=== PATIENT | male | born 1950 | race Caucasian/White ===

== ENCOUNTER 2017-04-13 02:05 | Inpatient (IN) | payer MEDICARE ==
[~2017-04-13 02:05] MED LIST: ALBUTEROL2.5 MG/0.5 IH; LEVAQUIN500 MG PO; LOSARTAN POTAS100 MG PO; LOVAZA1 GM PO; NITROTAB0.4 MG SL; PHENERGAN W/CO120 ML PO; PREDNISONE10 MG PO; VENTOLIN HFA18 GM IH
[2017-04-13] MEDS ORDERED: NORVASC2.5 M1 PO (02:17)
[2017-04-13] MEDS ORDERED: TRICOR145 M2 PO (02:17)
[2017-04-13] MEDS ORDERED: LOVAZA1 GM/CAP PO (02:18)
[2017-04-13 03:44] LABS: BASO % 0.3 % (0-2); EOS % 0.6 % (0-7); HCT-HEMATOCRIT 46.7 % (36.0-53.5); HGB-HEMOGLOBIN 16.6 gm/dl (13.5-17.0); IMMATURE GRANULOCYTES ABSOLUTE 0.02 tho/cmm (0-0.03); IMMATURE GRANULOCYTES PERCENT 0.6 % (0-0.3); LYMPH % 10.4 % (20-45); LYMPH ABSOLUTE COUNT 0.4 tho/cmm (0.8-4.5); MCHC MEAN CORPUSCULAR HGB CONC 35.5 % (32.0-36.0); MCV (MEAN CELL VOLUME) 84.4 fl (82.0-96.0); MEAN PLATELET VOLUME 10.4 cmc (9.4-12.4); MONO % 0.9 % (0-12); NEUTROPHILS % 87.2 % (40-80); PLATELET COUNT 148 tho/cmm (150-450); RED BLOOD COUNT 5.53 mil/cmm (4.40-5.70); RED CELL DISTRIBUTION WIDTH 12.4 % (12.4-16.4); WHITE BLOOD COUNT 3.5 tho/cmm (4.0-10.0)
[2017-04-13 03:50] LABS: INR 0.9 INR (0.9-1.1); PROTHROMBIN TIME 10.6 SECONDS (9.0-13.6)
[2017-04-13 03:56] LABS: ALB/GLOB RATIO 0.9 (0.8-2.0); ALBUMIN 2.8 g/dl (3.5-5.0); ALKALINE PHOSPHATASE 59 U/L (33-138); ALT/SGPT 29 U/L (12-78); ANION GAP 14 mmol/L (0-20); AST/SGOT 33 U/L (10-40); BILIRUBIN,TOTAL 0.7 mg/dl (0.0-1.5); BLOOD UREA NITROGEN 13 mg/dl (6-24); CALCIUM 7.6 mg/dl (8.5-10.5); CARBON DIOXIDE-VENOUS 21 mmol/L (22-32); CHLORIDE 107 mmol/l (96-110); CREATININE 0.98 mg/dl (0.60-1.30); GLUCOSE 128 mg/dL (70-110); SODIUM 139 mmol/L (135-145); eGFR VALUE FOR BLACK >90 mL/Min
[2017-04-13 04:08] LABS: PROCALCITONIN 0.22 ng/ml (0.05-0.09)
[2017-04-13 04:09] LABS: POTASSIUM 2.9 mmol/L (3.7-5.1)
[2017-04-13 07:35] LABS: MAGNESIUM 1.4 mg/dl (1.8-2.6)
[2017-04-13 07:38] LABS: TSH-THYROID STIMULATING HORM. 0.85 uIU/ml (0.40-3.80)
[2017-04-13 07:56] LABS: PROCALCITONIN 8.31 ng/ml (0.05-0.09)
[2017-04-13 15:38] LABS: URINE BILIRUBIN NEGATIVE (NEG); URINE BLOOD NEGATIVE (NEG); URINE GLUCOSE (UA) NEGATIVE (NEG); URINE KETONE NEGATIVE (NEG); URINE LEUKOCYTE ESTERASE NEGATIVE (NEG); URINE NITRITE NEGATIVE (NEG); URINE PH 6.5 (5.0-8.0); URINE PROTEIN NEGATIVE (NEG); URINE SPECIFIC GRAVITY 1.005 (1.003-1.030)
[2017-04-13 15:48] LABS: URINE APPEARANCE CLEAR; URINE COLOR PALE YELLOW
[2017-04-13 15:49] LABS: URINE EPITHELIAL CELLS 0 /[HPF] (0-10); URINE RBC RARE /[HPF] (0-5); URINE WBC RARE /[HPF] (0-5)
[2017-04-14 05:57] LABS: BASO % 0.2 % (0-2); EOS % 2.2 % (0-7); EOSINOPHIL ABSOLUTE COUNT 0.1 tho/cmm (0.0-0.7); HCT-HEMATOCRIT 41.1 % (36.0-53.5); HGB-HEMOGLOBIN 14.2 gm/dl (13.5-17.0); IMMATURE GRANULOCYTES ABSOLUTE 0.01 tho/cmm (0-0.03); IMMATURE GRANULOCYTES PERCENT 0.2 % (0-0.3); LYMPH % 13.7 % (20-45); LYMPH ABSOLUTE COUNT 0.6 tho/cmm (0.8-4.5); MCH (MEAN CORPUSCULAR HGB) 29.7 pg (28.0-32.0); MCHC MEAN CORPUSCULAR HGB CONC 34.5 % (32.0-36.0); MEAN PLATELET VOLUME 10.2 cmc (9.4-12.4); MONO % 9.7 % (0-12); MONOCYTE ABSOLUTE COUNT 0.4 tho/cmm (0.0-1.2); NEUTROPHIL ABSOLUTE COUNT 3.3 tho/cmm (1.6-8.0); NEUTROPHIL-AUTOMATED 3.3 tho/cmm (1.6-8.0); PLATELET COUNT 121 tho/cmm (150-450); RED BLOOD COUNT 4.78 mil/cmm (4.40-5.70); RED CELL DISTRIBUTION WIDTH 12.8 % (12.4-16.4); WHITE BLOOD COUNT 4.5 tho/cmm (4.0-10.0)
[2017-04-14 06:20] LABS: ANION GAP 11 mmol/L (0-20); BLOOD UREA NITROGEN 8 mg/dl (6-24); CALCIUM 7.9 mg/dl (8.5-10.5); CARBON DIOXIDE-VENOUS 25 mmol/L (22-32); CHLORIDE 109 mmol/l (96-110); CHOLESTEROL 126 mg/dl (120-200); CREATININE 0.78 mg/dl (0.60-1.30); GLUCOSE 135 mg/dL (70-110); HDL CHOLESTEROL 20 mg/dl (40-60); LDL CHOLESTEROL 51 mg/dl (0-99); MAGNESIUM 1.7 mg/dl (1.8-2.6); POTASSIUM 3.3 mmol/L (3.7-5.1); SODIUM 142 mmol/L (135-145); VLDL 55 mg/dl (0-30); eGFR VALUE FOR BLACK >90 mL/Min
[2017-04-14 06:21] LABS: TRIGLYCERIDES 277 mg/dl (<149)
[2017-04-15] MEDS ORDERED: CIPRO500 M2 PO (09:28)
[2017-04-15] MEDS ORDERED: FLAGYL500 M1 PO (09:29)
== END 2017-04-15 10:30 | DRG 872 ==
LOC: EDMED 02:05 → EMR2 06:34 → 5EB 12:00
PROVIDERS: Emergency Medicine; ADMIT Internal Medicine
DX: A41.9 Sepsis, unspecified organism (principal); E87.2 Acidosis; K57.92 Diverticulitis of intestine, part unspecified, without perforation or abscess without bleeding; R65.20 Severe sepsis without septic shock; R07.89 Other chest pain; E78.5 Hyperlipidemia, unspecified; E87.6 Hypokalemia; I10 Essential (primary) hypertension; K21.9 Gastro-esophageal reflux disease without esophagitis; D72.819 Decreased white blood cell count, unspecified; E74.39 Other disorders of intestinal carbohydrate absorption; Z96.642 Presence of left artificial hip joint
CPT/HCPCS: C8929; J1650; J2405; J2543; J3480; J7030; Q9967